=== PATIENT | female | born 1970 | race Caucasian/White ===

== ENCOUNTER 2018-01-13 23:27 | Emergency (ER) | payer OTHER ==
[2018-01-13 23:36] VITALS: TEMP 98.3; BMI 23.3
[2018-01-13] MEDS ORDERED: DILAUDID 1 MG/ML SYRINGE IM STA (23:42)
[2018-01-13] MEDS ORDERED: TORADOL IM STA (23:42)
[2018-01-13] MEDS ORDERED: NORFLEX IM STA (23:42)
--- NOTE | 2018-01-14 00:25 | CT ---
EXAM: CT lumbar spine without intravenous contrast 01/13/2018. Sagittal and coronal reformatted gustavo ges obtained HISTORY: Sciatica COMPARISON: 10/28/2010 FINDINGS: A normal lumbar lordosis is maintained. Vertebral bodies appear intact. The facet joints align normally. There is no fracture or subluxation at any level. Intervertebral disc spaces appear preserved. The spinal canal appears grossly patent. IMPRESSION: No acute osseous abnormality of the lumbar spine.
[2018-01-14] MEDS ORDERED: DILAUDID 1 MG/ML SYRINGE IM STA (00:39)
--- NOTE | 2018-01-14 00:42 | ED.PDOC ---
General ED Provider: Dr. GEORGIE LOERA-ER Chief Complaint: Back Pain Stated Complaint: i hurt my back at work--its going down my right leg Time Seen by Physician: 23:30 Information Source: Patient Exam Limitations: No limitations Nursing and Triage Documentation Reviewed and Agree: Yes Does patient meet sepsis criteria?: No System Inflammatory Response Syndrome: Not Applicable Sepsis Protocol: For patient's 13 years and over: Temp is 96.8 and below OR 101 and greater Pulse >90 BPM Resp >20/minute Acutely Altered Mental Status Are patient's symptoms suggestive of a new infection, such as: -Pneumonia -Skin, Soft Tissue -Endocarditis -UTI -Bone, Joint Infection -Implantable Device -Acute Abdominal Infection -Wound Infection -Meningitis -Blood Stream Catheter Infection -Unknown Musculoskeletal Complaint Exam - Back Pain Complaint/Exam Mechanism of Injury: Reports: Trauma Onset/Duration: several days Symptoms Are: Still present Timing: Constant Initial Severity: Mild Current Severity: Moderate Location: Reports: Discrete Character: Reports: Dull, Aching Aggravating: Reports: Movements, Lifting, Bending, Walking Associated Signs and Symptoms: Denies: Swelling, Redness, Bruising, Fever, Weakness, Numbness, Tingling, Abdominal pain, Flank pain, Bladder incontinence, Bowel incontinence, Weight loss, Pain with weight bearing Related History: Reports: Previous back injury Epidural Abcess Risk Factors: Reports: None Focal Tenderness: Yes Paraspinal Muscle Tenderness: Yes Scoliosis: No Lordosis: No Kyphosis: No SLR Test: Right Negative, Left Negative Hip Motion Testing Pain: Right Negative, Left Negative Focal Weakness: Present: None Focal Sensory Loss: Present: None Gait: Present: Abnormal Differential Diagnoses: Herniated Disk, Other Review of Systems - Review Of Systems Constitutional: Reports: No symptoms Eyes: Reports: No symptoms Ears, Nose, Mouth, Throat: Reports: No symptoms Respiratory: Reports: No symptoms Cardiac: Reports: No symptoms GI: Reports: No symptoms : Reports: No symptoms Musculoskeletal: Reports: Back pain, Muscle pain Skin: Reports: No symptoms Neurological: Reports: No symptoms Endocrine: Reports: No symptoms Hematologic/Lymphatic: Reports: No symptoms All Other Systems: Reviewed and Negative Past Medical History - Past Medical History Previously Healthy: Yes Endocrine: Reports: Unknown Cardiovascular: Reports: Unknown Respiratory: Reports: Unknown Hematological: Reports: Unknown Gastrointestinal: Reports: Unknown Genitourinary: Reports: Unknown Neuro/Psych: Reports: Unknown Musculoskeletal: Reports: Unknown Cancer: Reports: Unknown Last Menstrual Period: 3 days - Surgical History General Surgical History: Reports: Unknown - Family History Family History: Reports: Unknown - Social History Smoking Status: Current every day smoker, Light tobacco smoker Hx Substance Use: No Alcohol Screening: Occasionally - Immunizations Tetanus Shot up to Date: Yes Physical Exam - Physical Exam Appearance: Well-appearing, No pain distress, Well-nourished Eyes: UVALDO, EOMI, Conjunctiva clear ENT: Ears normal, Nose normal, Oropharynx normal Neck: Supple Respiratory: Airway patent Cardiovascular: RRR, Pulses normal, No rub, No murmur GI/: Soft, Nontender, No masses, Bowel sounds normal, No Organomegaly Musculoskeletal: Normal strength, ROM intact, No edema, No calf tenderness Skin: Warm Neurological: Sensation intact, Motor intact, Reflexes intact, Cranial nerves intact, Alert, Oriented Psychiatric: Affect appropriate, Mood appropriate, Anxious Interpretation - Radiology Interpretation Radiology Interpretation By: Radiologist Radiology Results: Negative Exam Interpreted: CT Scan Re-Evaluation - Re-Evaluation Time of Re-Evaluation: 01:05 Status: Improved Vital Signs Stable: Yes Pain Level: 1 Appearance: NAD Lungs: Clear Skin: Warm and Dry Neuro: Alert and Oriented X3 CV: RRR Critical Care Note - Critical Care Note Total Time (mins): 0 Course - Course Orders, Labs, Meds: Orders Category Date Time Status Hydromorphone HCl [Dilaudid 1 mg/ml Syringe] MEDS 01/13/18 23:42 Discontinued 1 mg IM ONCE STA Hydromorphone HCl [Dilaudid 1 mg/ml Syringe] MEDS 01/14/18 00:39 Stat 1 mg IM ONCE STA Ketorolac Tromethamine [Toradol] MEDS 01/13/18 23:42 Discontinued 60 mg IM ONCE STA Orphenadrine Citrate [Norflex] MEDS 01/13/18 23:42 Discontinued 60 mg IM ONCE STA CT LUMBAR SPINE W/O CONTRAST Stat RADS 01/13/18 23:41 Completed Medications Discontinued Medications Generic Name Dose Route Start Last Admin Trade Name Freq PRN Reason Stop Dose Admin Hydromorphone HCl 1 mg 01/13/18 23:42 01/14/18 00:07 Dilaudid 1 Mg/Ml Syringe IM 01/13/18 23:43 1 mg ONCE STA Administration Ketorolac Tromethamine 60 mg 01/13/18 23:42 01/14/18 00:08 Toradol IM 01/13/18 23:43 60 mg ONCE STA Administration Orphenadrine Citrate 60 mg 01/13/18 23:42 01/14/18 00:07 Norflex IM 01/13/18 23:43 60 mg ONCE STA Administration Vital Signs: Temp Pulse Resp BP Pulse Ox 01/13/18 23:28 98.3 F 95 H 36 H 123/74 99 Departure - Departure Time of Disposition: 00:43 Disposition: HOME SELF-CARE Discharge Problem: Backache Instructions: Lumbar Radiculopathy (ED), Sciatica (ED) Condition: Good Pt referred to PMD for follow-up: Yes IPMP verified?: No Additional Instructions: f/u with pcp this week Allergies/Adverse Reactions: Allergies No Known Allergies Allergy (Verified 01/13/18 23:39) Home Medications: Ambulatory Orders Cyclobenzaprine HCl [Flexeril] 10 mg PO TID 01/13/18 Prednisone 10 mg PO DIRECTED 01/13/18 Disposition Discussed With: Patient, Family
[2018-01-14 00:57] VITALS: BP 118/64
== END 2018-01-14 01:00 | disposition home or self-care (01) ==
LOC: ED 23:27
DX: M54.9 Dorsalgia, unspecified (principal); F17.210 Nicotine dependence, cigarettes, uncomplicated
CPT/HCPCS: 96372; 99283